=== PATIENT | female | born 1945 | race Caucasian/White ===

== ENCOUNTER 2022-05-13 10:20 | Inpatient (IN) | payer MEDICARE, SELFPAY ==
[2022-05-04 10:33] VITALS: BMI 21.9
[2022-05-13] VITALS (13 sets, daily range): BP systolic 96–137; BP diastolic 51–72; PULSE 19–111; RESP 11–24; TEMP 36.6–37.2; O2SAT 92–99; BMI 21.9
--- NOTE | 2022-05-13 | DI.RAD.S_ITS ---
PROCEDURE: XR LUMBAR SPINE 2-3V INDICATIONS: L3-4 L4-5 TLIF TECHNIQUE: 2 intraoperative fluoroscopic images obtained. COMPARISON: None. FINDINGS: Fluoroscopic images from L3-L4 and L4-L5 fusion. IMPRESSION: Intraprocedural fluoroscopy was provided for guidance and anatomical localization. Please see the procedure report for further details. Dictated by: Zi Muñoz M.D. on 05/14/2022 at 10:46 Approved by: Zi Muñoz M.D. on 05/14/2022 at 10:48
--- NOTE | 2022-05-13 11:23 | PM.PREOP ---
Pre-operative Note COVID-19 COVID-19 status: Negative Result date/Date tested (Pos, Neg/Pending): 05/12/22 Criteria for continued procedure: Expected advancement of disease process, Possibility delay results in more complex future surgery or treatment, Increased loss of function, Continuing or worsening of significant or severe pain, Deterioration of the patient's condition or overall health and Delay expected to result in less-positive ultimate med/surg outcome Interval Note History & Physical reviewed/Exam performed by Physician: Yes Changes to H&P: No
[2022-05-13 11:26] LABS: COVID19 -Nasal RAPID Negative (Negative)
[2022-05-13] MEDS: LACTATED RINGERS 1,000 ML 42 ML IV ×3 (11:39→13:48)
[2022-05-13] MEDS: CLINDAMYCIN 600 MG/50 ML PIGGYBACK 50 MG IV ×2 (11:51→20:29)
--- NOTE | 2022-05-13 12:25 | SUR.OPER ---
Prone on spine table, head in foam head support, padded chest and pelvic supports, gel pad at knees, lower legs supported by pillows; nipples, genitalia and toes free of pressure, arms secured on foam padded arm boards at <90 degrees abduction. Tape over blanket at thigh secured to table.
[2022-05-13] MEDS: BUPIVACAINE LIPOSOME 266 MG/20 ML VIAL INJ (12:32)
[2022-05-13] MEDS: BUPIVACAINE 0.25% (PF) 30 ML, EPINEPHrine 0.3 MG INJ (12:32)
--- NOTE | 2022-05-13 15:04 | P.OP_ITS ---
Operative Date/Time/Diagnoses Date of procedure: 05/13/22 Time of procedure: 12:30 Pre-op diagnosis: 1. L3-4, L4-5 spondylolisthesis 2. L3-4, L4-5 spinal stenosis with radiculopathy Post-op diagnosis: same Procedure & Clinicians Procedure: 1. L3-4, L4-5 Postero-lateral and posterior interbody fusion 2. L3-4, L4-5 interbody cage placement. 3. L3-4, L4-5 decompressive laminectomy with bilateral facetecomies 4. L3-4, L4-5 Posterior segmental instrumentation 5. [place] of bone marrow from iliac crest 6. Utilization of microsurgical technique and operating microscope 7. Utilization of robotic assisted navigation Same procedure as scheduled: Yes Indications: Patient has been having chronic back pain and worsening lumbar radiculopathy. Patient failed multiple conservative management with worsening pain weakness and numbness in her lower extremity. Patient has been having difficulty performing activity of daily living. After discussing risks benefits of treatment options, patient elected proceed with surgery. Surgeon: Carlos Feldman Dredge Pipeman: Leah Jackson Click Yes if Unassisted: No Anesthesia Type: General Operative Notes Closure Type: primary Specimen(s): none sent Prosthetic devices, grafts, tissues, transplants, or devices: Globus CREO MIS screws, Rise cages Applied: catheter Estimated Blood Loss (mL): 100 Blood products transfused: none Procedure in detail: Patient was seen in the preoperative area. Risks and benefits of the surgery was discussed with the patient. Informed consent was obtained from the patient and placed in the chart. Surgical site was marked. Patient was taken to the operative room. General anesthesia was administered. Prophylactic antibiotic was given to the patient less than 30 min before the incision was made. Patient was placed into a prone position on the Scott table. Patient's back was then prepped and draped in the sterile fashion. Time-out was performed at this time. After patient was prepped and draped, patient's PSIS was palpated and marked nerissa aterally. Small 1 cm incision was made over the PSIS for placement of the reference probes. Two trocar was placed into the PSIS 1 on each side. The reference probe was attached to the trocar of the reference apparatus. At this time the C-arm imaging was used to confirm AP and lateral of L3, L4-L5 vertebrae and merged the C-arm imaging using the elmenus robotic navigation system with the CT of the lumbar spine. After successful merging was completed and confirmed, skin marker was used to manjula out the skin incision using the elmenus robotic arm. Bilateral incision was made at this time. Pre templated trajectory was used and guided using the elmenus robotic navigation system for bilateral L3 L4, L5 pedicle screw placement. This was done by using the robotic arm to guide the high-speed bur to make a cortical entry point. Next a drill was placed also using the robotic arm and guided using the navigation system drilling partially through bilateral L3, L4, L5 pedicles. Next L3, L4, L5 pedicle screws it was pre templated and measured was placed onto the power long haul truck driver and inserted into the pedicles bilaterally. After all 6 screws were placed C-arm imaging was taken of both AP and lateral to confirm the placement. Excellent placement of the screws were confirmed and a matched precisely with the pre planned screw placement using the navigation system. MARs retractor was inserted using [employer] guidence. Globus MARS retractors was placed inside the incision and docked onto the L3, L4 lamina. Using microsurgical technique and operating microscope, a L3, L4 laminectomy and L3-4, L4-5 facetectomy was performed using a Kerrison rongeur. Patient was found have severe lateral recess and neural foramen stenosis which was fully decompressed after the laminectomy facetectomy. More than 75% of the facets were removed during the process of decompression rendering L3-4, L4-5 level grossly unstable and required a fusion procedure at the same time. The disc space at L3-4, L4-5 was identified, and a total diskectomy was performed at L3- 4, L4-5 level. The endplates were decorticated using a rasp and shaver. The total diskectomy and decortication was performed at L3-4, L4-5 level in order to to accomplish a L3-4, L4-5 fusion. The local bone from the laminectomy and facetectomy was saved for local bone grafting. After the total diskectomy and decortication was completed, Trifecta bone graft material was combined with local bone that was harvested earlier. At this time, a separate skin is incision was made over the iliac crest. A Jamshidi needle was inserted into the iliac crest through a separate skin incision. 5 cc of bone marrow aspiration was obtained through the separate skin incision using a Jamshidi needle from the iliac crest. The bone marrow aspiration was combined with local bone and the Trifecta bone grafting material. The bone grafting material was placed into the L3-4, L4-5 interbody space along with expandable cages. One cage each was inserted into the L3-4 L4-5 interbody space along with bone graft material. The cage was expanded to its maximum height using the torque limiting screwdriver. The disc preparation as well as the cage insertion were also performed under navigation guidance. After the cage was placed, AP and lateral C-arm imaging was taken to confirm placement of the cage and excellent position was confirmed. Globus MARS retractor was inserted and docked onto the L3-4, L4-5 posterolateral gutter on the right side. Using the power drill, posterior-lateral decortication was performed at L3-4, L4-5 level until bleeding cortical bone was identified. The remaining bone grafting material was placed into the L3-4, L4-5 posterior lateral gutter he order to accomplish posterolateral fusion at the L3- 4, L4-5 level. At this time the tulips were attached to the L3, L4-L5 pedicle screw shanks. After measuring the length of the rods, they were inserted into the tulips of the pedicle screws and locked in place using locking caps and torque limiting screwdriver bilaterally. Total 6 caps and 2 titanium rods was used in order to complete the posterior instrumentation construct. After all the hardware was placed, and confirmed with AP and lateral C-arm imaging, the wound was then irrigated with sterile normal saline and packed with Ray-Dario gauze for 3 min to accomplish hemostasis. After the gauze was removed the deep fascia was closed with #1 Vicryl suture. The subcutaneous layer was closed with 2-0 Vicryl. The skin was closed with skin deisy. Patient tolerated the procedure well. There were no complications. Neuro monitoring system was used to monitor patient's neurologic status throughout entire procedure. There was no disturbance of the neural monitoring signals throughout the case. The Operation could not have been safely performed without compromising the technical result or length of the procedure, without the assistance of a skilled surgical garment assembly supervisor. The surgical garment assembly supervisor was medically necessary for proper positioning, retraction and manipulation of instruments, proper exposure, surgical preparation, and manipulation of tissue. Complications: none Post-operative Condition: stable Disposition: PACU Plan for aftercare: Admit to inpatient hospital
[2022-05-13] MEDS: fentaNYL 100 MCG/2 ML INJ IV ×2 (15:20→15:43)
[2022-05-13] MEDS: hydrOXYzine 50 MG/ML INJ 25 MG IM (15:22)
[2022-05-13] MEDS: OXYCODONE/ACETAMINOPHEN 5/325 TABLET 1 TAB PO (15:50)
[2022-05-13] MEDS: LORazepam 2 MG/ML INJ 0.25 MG IV (15:50)
[2022-05-13] MEDS: HYDROMORPHONE 2 MG INJ IV ×2 (15:54→16:09)
[2022-05-13] MEDS: LACTATED RINGERS 1,000 ML 125 ML IV (17:35)
[2022-05-13] MEDS: OXYCODONE IR 10 MG TABLET PO ×2 (18:06→22:48)
[2022-05-13] MEDS: ACETAMINOPHEN 325 MG TABLET 650 MG PO (18:06)
[2022-05-13] MEDS: HYDROMORPHONE 0.5 MG INJ IV ×2 (19:13→23:36)
[2022-05-13] MEDS: ALBUTEROL 2.5 MG/3 ML NEB (ADULT) INH (20:19)
[2022-05-13] MEDS: SENNOSIDES 8.6 MG TABLET 17.2 MG PO (20:29)
[2022-05-13] MEDS: DOCUSATE 100 MG CAPSULE PO (20:29)
[2022-05-13] MEDS: CYCLOBENZAPRINE 10 MG TABLET PO (22:48)
[2022-05-13] MEDS: TRAZODONE 50 MG TABLET 100 MG PO (22:48)
[2022-05-13] MEDS: hydrOXYzine pamoate 25 MG CAPSULE PO (23:40)
[2022-05-14] VITALS (8 sets, daily range): BP systolic 109–128; BP diastolic 55–69; PULSE 92–105; RESP 14–18; TEMP 36.7–37.1; O2SAT 92–97
[2022-05-14] MEDS: HYDROMORPHONE 0.5 MG INJ IV ×8 (00:41→20:23)
[2022-05-14] MEDS: ACETAMINOPHEN 325 MG TABLET 650 MG PO ×3 (01:55→16:29)
[2022-05-14] MEDS: OXYCODONE IR 10 MG TABLET PO ×6 (01:55→22:48)
[2022-05-14] MEDS: LACTATED RINGERS 1,000 ML 125 ML IV (03:08)
[2022-05-14] MEDS: CLINDAMYCIN 600 MG/50 ML PIGGYBACK 50 MG IV (04:42)
[2022-05-14] MEDS: hydrOXYzine pamoate 25 MG CAPSULE PO ×4 (06:16→22:48)
[2022-05-14] MEDS: CYCLOBENZAPRINE 10 MG TABLET PO ×3 (06:16→22:48)
[2022-05-14] MEDS: LEVOTHYROXINE 75 MCG TABLET PO (06:16)
[2022-05-14 07:04] LABS: Hemoglobin 7.9 g/dL (12.0-16.0)
[2022-05-14] MEDS: estradioL 1 MG TABLET PO (08:19)
[2022-05-14] MEDS: DOCUSATE 100 MG CAPSULE PO ×2 (08:19→20:04)
[2022-05-14] MEDS: AMLODIPINE 5 MG TABLET PO (08:19)
[2022-05-14] MEDS: hydroCHLOROthiazide 25 MG TABLET PO (08:19)
[2022-05-14] MEDS: allopurinoL 100 MG TABLET 200 MG PO (08:19)
[2022-05-14] MEDS: OXYCODONE IR 5 MG TABLET 10 MG PO (08:20)
[2022-05-14] MEDS: ALBUTEROL 2.5 MG/3 ML NEB (ADULT) INH ×2 (09:06→21:35)
--- NOTE | 2022-05-14 10:48 | PT.IIE ---
Current Diagnoses Spondylolisthesis, lumbar region (05/13/22) Spinal stenosis, lumbar region with neurogenic claudication (05/13/22) Surgery Performed Operation Date: 05/13/22 12:15 Actual Procedures p L3-4, L4-5 TLIF w. posterior instrumentation -Robot - Carlos Feldman MD Surgical History (Last Updated 05/04/22 @ 11:27 by Yadira Oscar, RN) History of hysterectomy History of surgery Hx of abdominal surgery Hx of appendectomy Hx of cholecystectomy Hx of dilation and curettage Medical History (Last Updated 05/04/22 @ 11:27 by Yadira Oscar RN) Bilateral cataracts Bowel obstruction COPD (chronic obstructive pulmonary disease) Deviated nasal septum GERD (gastroesophageal reflux disease) Gout History of [place] (hard of hearing) HTN (hypertension) Hypothyroidism Sciatica Spinal stenosis Physical Therapy Inpatient Evaluation/Re-Eval M1 PT/OT-IP Prior Functional Status Start: 05/14/22 10:50 Freq: NEEDED Status: Active Protocol: Document 05/14/22 09:47 DCW (Rec: 05/14/22 11:06 DCW [id number]) Medical Review Prior Functional Status Medical History Reviewed Yes Diet/Fluid Consistency Regular Communication WNL Mobility and Gait Occasionally uses cane, purchased a FWW for post-op Social History Household Members spouse Living Arrangements House Number of Floors (Floors) One Floor Number of Stairs To Enter/Railing? 2 SANDRO, bilateral railing Home Equipment Hospital Bed,Bed Rails M2 PT-IP Current Condition Start: 05/14/22 10:50 Freq: NEEDED Status: Active Protocol: Document 05/14/22 09:47 DCW (Rec: 05/14/22 11:06 DCW [id number]) Physical Therapy Current Condition Current Condition Evaluation Date 05/14/22 Treatment Diagnosis L3-4-5 TLIF, lami Onset Date 05/13/22 M3 PT-IP Subjective Start: 05/14/22 10:50 Freq: NEEDED Status: Active Protocol: Document 05/14/22 09:47 DCW (Rec: 05/14/22 11:06 DCW [id number]) Subjective Physical Therapy Visit Type Type Initial Evaluation Visit Start Time 09:47 Visit Stop Time 10:48 Total Visit Minutes 61 Notes Per RN, pt H&H low, but pt BP stable, pt has no symptoms, appropriate for treatment. Pt in bed with head elevated when PT entered room, agreeable to treatment. Notes pain has been improved so far, but still very sore. Pt worried about home, notes her is unable to assist her at all due to his own medical issues , very worried about how to perform her daily activities without doing and bending, lifting, or twisting. Number of BINDERY HELPER Visits 0 Physical Therapy Visit Comments Patient Comments I know I'm supposed to get up , but it's going to really hurt. Therapy Pain Assessment Pain When Pain Assessed During Mobility Pain Present Pain Present Pain Reported Location Lower Back Intensity 7 Scale Used Numeric (0 - 10) Description Sharp,Stabbing Pain Behaviors Calling Out,Facial Grimacing, Wincing Pain Management Techniques Timing of Activity with Medications M4 PT-IP Mobility and Gait Start: 05/14/22 10:50 Freq: NEEDED Status: Active Protocol: Document 05/14/22 09:47 DCW (Rec: 05/14/22 11:06 DCW [id number]) PT-Bed Mobility Assessment Rolling Type of Rolling Log Rolling,Roll to Right Level of Assist Minimal Assistance,1 Person Assistance Supine to Sit Supine to Sit Moderate Assistance,1 Person Assistance,Bedrails Sit to Supine Sit to Supine Moderate Assistance,1 Person Assistance,Bedrails Scooting Scooting to Edge of Bed Minimal Assistance Scooting Up and Down in Bed Minimal Assistance PT-Transfer Assessment Sit to and From Stand Sit to and from Stand Contact Guard Assistance Equipment Transfer Assistive Device Bed Rail,Gait Belt,Front Wheeled Walker Orthotic/Prosthetic Devices or Brace: No Comments Mobility Comments Pt requires verbile and tactile cues, as well as Mod Ax1 with bed mobility, both to ensure she follows spinal precautions and to assist getting hips to roll. Gait Assessment Gait Gait Assistance Required: Contact Guard Assist Distance (Feet) 50 Able to Maintain Weight Bearing Status Yes During Gait Assistive Devices Assistive Device Gait Belt,Front Wheeled Walker Gait Deviations General Gait Pattern Antalgic,Flexed Trunk Factors Limiting Gait Function Factors Limiting Gait Function Decreased Activity Tolerance, Decreased Strength,Pain Comments Gait Comments Pt able to ambulate 50' in hallway, clearly fatigued by end of walk, used FWW, SBA. PT-Balance Assessment Sitting Balance and Reactions Static Sitting Balance Ability Normal Dynamic Sitting Balance Ability Normal Standing Balance and Reactions Static Standing Balance Ability Good Dynamic Standing Balance Ability Fair Device Used FWW M5 PT-IP Objective Assessments Start: 05/14/22 10:50 Freq: NEEDED Status: Active Protocol: Document 05/14/22 09:47 DCW (Rec: 05/14/22 11:06 DCW [id number]) Orientation Orientation/Cognition Orientation Name,Age,Birthday,Month,Date, Year,Day of Week,Place, Situation Language Function Ability No Deficits Noted Safety Awareness Understands Safety Issues Memory Description No Deficits Noted Strength Comments Strength Comments LE motion limited secondary to pain, but able to lift limbs against gravity and perform functional mobility M7 PT-IP Assessment and Plan Start: 05/14/22 10:50 Freq: NEEDED Status: Active Protocol: Document 05/14/22 09:47 DCW (Rec: 05/14/22 11:06 DCW [id number]) PT Summary Assessment and Plan Potential Rehabilitation Potential Good Status of Condition at Evaluation Evolving Summary Impairments Pain,ROM,Strength,Balance,Bed Mobility,Transfers,Gait, Activity Tolerance Assessment Summary Pt is POD #1 following T3-5 TLIF, Lami. Pt struggling significantly with pain control, but after getting up into standing was feeling much better. Pt required Mod Ax1 with bed mobility and maintaining spinal precautions . Very limited with activity tolerance. Pt does not have good support at home, is unlikely to be safe at this time discharging home, will likely need stay at SNF for rehab prior to return home to decrease burden of care and improve independence. Pt left in bed with call navarro in place , new warm blanket, and tray with water. Incision dressing noted to be clean, dry, and intact. Pt did have a rather large area of blood stained on her sequential compression cuff on her left leg, but no wound could be seen. RN informed. Goals Bed Mobility Goal Contact Guard Assistance Transfer Goal Contact Guard Assistance Gait Goal Standby Assistance Gait Distance 100' Other Goals Ascend/descend 3 steps CGA /c bilateral railing Frequency of Treatment Frequency Of Treatment Twice a Day Treatment Plan Physical Therapy Treatment Plan Bed Mobility Training,Transfer Training,Gait Training, Therapeutic Exercise,Discharge Planning Precautions Lumbar Precautions Log Roll,No Twisting,Limit Bending,Lifting Restriction of 10 lbs,Gait Belt above Incisional Area Weight Bearing Status Weight Bearing Status Weight Bear as Tolerated Recommendations To Nursing Amount of Assist Needed 1 Person Assist Discharge Recommendations PT Discharge Recommendations SNF Rehab
[2022-05-14] MEDS: MAGNESIUM HYDROXIDE 30 ML UDC PO (10:49)
[2022-05-14] MEDS: polyethylene glycoL 3350 17 GM POWD.PACK PO (10:49)
--- NOTE | 2022-05-14 11:42 | PM.PNPO.1 ---
Subjective Subjective Date Patient Seen: 05/14/22 Time Patient Seen: 11:42 Interval history: Patient awake and comfortably lying in bed this morning. She states the pain is not bad when she is not moving and is well controlled with medication. She notes that she has been up with physical therapy and was able to walk down [place]oto with assistance. She has 3 steps to enter her home and plans to work on managing stairs next with physical therapy. She lives alone but she has adequate assistance nearby. Exam Vital Signs (past 8 hours): - 05/14/22 05:11 05/14/22 07:52 05/14/22 07:52 Temperature 98.1 F Pulse Rate 92 H Respiratory Rate 18 Blood Pressure 118/63 Pulse Oximetry 95 95 Oxygen Delivery Method Nasal Cannula Nasal Cannula Oxygen Flow Rate 2 2 05/14/22 09:06 05/14/22 09:18 05/14/22 08:50 Temperature 98.4 F Pulse Rate 101 H 105 H Respiratory Rate 14 18 Blood Pressure 109/55 L Pulse Oximetry 95 92 92 Oxygen Delivery Method Nasal Cannula Room Air Oxygen Flow Rate 2 0 Fraction of Inspired Oxygen 28 SaO2/FiO2 Ratio 350 Oxygen Delivery Method Room Air Oxygen Flow Rate 2 Narrative Exam Narrative: Pleasant 76-year-old female. Awake, alert, and oriented. Intraoperative dressing clean, dry, and intact. Strength and sensation intact to bilateral lower extremities. Bilateral calves soft, compressible, nontender with no palpable cords or masses. SCDs on. Urinary catheter intact. Objective Labs 05/14/22 06:40 Labs: Laboratory Results - last 24 hr 05/14/22 06:40 Hgb 7.9 L Hct 23.0 L PFSH Medical History Bilateral cataracts Bowel obstruction COPD (chronic obstructive pulmonary disease) Deviated nasal septum GERD (gastroesophageal reflux disease) Gout History of [place] (hard of hearing) HTN (hypertension) Hypothyroidism Sciatica Spinal stenosis Surgical History History of hysterectomy History of surgery Hx of abdominal surgery Hx of appendectomy Hx of cholecystectomy Hx of dilation and curettage Social History household members: spouse Smoking Status: Current every day smoker alcohol intake: current Assessment & Plan Post-op Postoperative Procedures: Procedures Operation Date: 05/13/22 12:15 Actual Procedure Side Surgeon p L3-4, L4-5 TLIF w. posterior instrumentation -Robot Carlos Feldman MD Postoperative day: 1 Postoperative status: doing well Postoperative status narrative: Patient is progressing as expected after L3-L5 TLIF. Postoperative plan: routine post-op care Postoperative plan narrative: Plan to continue with physical therapy today and assess patient's ability to manage stairs. Continue multimodal pain regimen. Discharge urinary catheter when able to be up to commode. Patient is considering returning to home versus penitentiary facility and is open to either option depending on which is more appropriate.
--- NOTE | 2022-05-14 11:52 | OT.IP.EVAL ---
Current Diagnoses Spondylolisthesis, lumbar region (05/13/22) Spinal stenosis, lumbar region with neurogenic claudication (05/13/22) Surgery Performed Operation Date: 05/13/22 12:15 Actual Procedures p L3-4, L4-5 TLIF w. posterior instrumentation -Robot - Carlos Feldman MD Past Medical History (Last Reviewed 05/14/22 @ 12:02 by Cynthia Castro PA-C) Bilateral cataracts Bowel obstruction COPD (chronic obstructive pulmonary disease) Deviated nasal septum GERD (gastroesophageal reflux disease) Gout History of [place] (hard of hearing) HTN (hypertension) Hypothyroidism Sciatica Spinal stenosis Surgical History (Last Reviewed 05/14/22 @ 12:02 by Cynthia Castro PA-C) History of hysterectomy History of surgery Hx of abdominal surgery Hx of appendectomy Hx of cholecystectomy Hx of dilation and curettage Occupational Therapy Inpatient Evaluation/Re-Eval M1 PT/OT-IP Prior Functional Status Start: 05/14/22 10:50 Freq: NEEDED Status: Active Protocol: Document 05/14/22 09:47 DCW (Rec: 05/14/22 11:06 DCW [id number]) Medical Review Prior Functional Status Medical History Reviewed Yes Diet/Fluid Consistency Regular Communication WNL Mobility and Gait Occasionally uses cane, purchased a FWW for post-op Social History Household Members spouse Living Arrangements House Number of Floors (Floors) One Floor Number of Stairs To Enter/Railing? 2 SANDRO, bilateral railing Home Equipment Hospital Bed,Bed Rails M1 PT/OT-IP Prior Functional Status Start: 05/14/22 13:27 Freq: NEEDED Status: Active Protocol: Document 05/14/22 11:20 CCC (Rec: 05/14/22 13:43 [facility] [id number]) Medical Review Prior Functional Status Medical History Reviewed Yes Diet/Fluid Consistency Regular Communication WNL Mobility and Gait Occasionally uses cane, purchased a FWW for post-op Activities of Daily Living and IADL's Pt states had pain with all her needs. Prior Functional Level (Other details) Pt states her is not able to assist and has medical issues. Social History Household Members spouse Living Arrangements House Number of Floors (Floors) One Floor Number of Stairs To Enter/Railing? 2 SANDRO, bilateral railing Home Environment Walk in Shower Home Equipment Front Wheel Walker,Four Wheel Walker,Glass Calibrator,Bed Rails Additional Social History Comment Pt has adjustable bed M2 OT-IP Current Condition Start: 05/14/22 13:27 Freq: Status: Active Protocol: Document 05/14/22 11:20 [facility] (Rec: 05/14/22 13:43 [facility] [id number]) Occupational Therapy Current Condition Current Condition Evaluation Date 05/14/22 Treatment Diagnosis S/p L3-4, L4-5 TLIF Diagnosis Onset Date 05/13/22 Post Operative Precautions Lumbar Precautions Log Roll,No Twisting,Limit Bending,Lifting Restriction of 10 lbs,Gait Belt above Incisional Area M3 OT- IP Subjective and Pain Start: 05/14/22 13:27 Freq: Status: Active Protocol: Document 05/14/22 11:20 [facility] (Rec: 05/14/22 13:43 [facility] [id number]) OT- Subjective Occupational Therapy Visit Type Type Initial Evaluation Visit Start Time 11:20 Visit Stop Time 11:52 Total Visit Minutes 30 Occupational Therapy Visit Comments Patient Comments Pt in pain and agreed to get up but just completed PT a little earlier. Patient/Caregiver Goals TO go home. OT Pain Assessment Pain When Pain Assessed At Rest Pain Present Pain Present Pain Reported Location Lower Back Intensity 7 Scale Used Numeric (0 - 10) M4 OT- IP ADL's Start: 05/14/22 13:27 Freq: Status: Active Protocol: Document 05/14/22 11:20 [facility] (Rec: 05/14/22 13:43 [facility] [id number]) OT [id number] Comments OT Self-Feeding Comments Set-up assist. OT ADL-Grooming Comments OT Grooming Comments Pt just wanted to wash her face with wash cloth. OT ADL-Oral Care Comments Oral Care Comments Pt refused. OT ADL-Dressing General Eval Lower Body Dressing Ability Maximum Assistance Comments OT Dressing Comments Educated pt on LB dressing equipment needs. OT ADL-Toileting Comments OT Toileting Comments Bond in place OT ADL-Bathing Comments OT Bathing Comments NOt performed as pt too tired and in pain. M5 OT- IP IADL's Start: 05/14/22 13:27 Freq: Status: Active Protocol: Document 05/14/22 11:20 [facility] (Rec: 05/14/22 13:43 [facility] [id number]) OT-Instrumental Activities of Daily Living Deficits IADL Deficits Identified Deficits Home Safety Awareness Ability to Problem Solve Emergency Able to Problem Solve Situations Home Safety Comments Pt little groggy and also somewhat hard of hearing and if going home will benefit from assist with ADl and mobility needs. M6 OT- IP Functional Cognition Start: 05/14/22 13:27 Freq: Status: Active Protocol: Document 05/14/22 11:20 [facility] (Rec: 05/14/22 13:43 [facility] [id number]) Cognitive Factors Limiting Selfcare Function Cognitive Ability Level of Alertness Alert Patient Orientation Name,Place,Situation Attention Span Ability Capable of Focused Attention, Capable of Sustained Attention Ability to Follow Commands Able to Follow One Step Commands with Increased Time, Able to Follow One Step Commands with Repetition Safety Awareness Decreased Recall of Precautions,Decreased Ability to Apply Precautions Cognitive Comments Cognitive Assessment Comments Pt a bit [place] and needing concrete cues to follow. Pt wanting to go home but realizing her will not be able to assist her at all due to his medical issues. Pt reluctant but appears open to go to skilled rehab is necessary. OT- Vision and Hearing OT- Hearing Assessment OT- Hearing Assessment Hearing Impaired M7 OT- IP Mobility and Balance Start: 05/14/22 13:27 Freq: Status: Active Protocol: Document 05/14/22 11:20 [facility] (Rec: 05/14/22 13:43 [facility] [id number]) OT- Bed Mobility Assessment Supine to Sit Supine to Sit Assist Moderate Assistance Sit to Supine Sit to Supine Assist Maximum Assistance OT-Transfer Assessment Comments Mobility Comments O2 on 1L at 96% and after bed mobility on RA dropped to 90% and 1L replaced and increased to 95%. MODA to help pt get uprigth and MAXA X1 to help get back into bed. pt having lots of pain and not wanting to do anymore at this time. OT- Balance Assessment Sitting Balance and Reactions Static Sitting Balance Ability Fair M9 OT- IP Assessment and Plan Start: 05/14/22 13:27 Freq: Status: Active Protocol: Document 05/14/22 11:20 [facility] (Rec: 05/14/22 13:43 [facility] [id number]) OT Summary Assessment and Plan Potential Rehabilitation Potential Good Analytic Complexity at Evaluation Low Summary OT Impairments Pain,Balance,Functional Cognition,Functional Mobility, Grooming,Dressing,Toileting, Bathing,Toilet Transfers, Shower Transfers,Activity Tolerance Progress Towards Goals Slow Progress due to Pain,Slow Progress due to Medical Issues,Slow Progress due to Activity Tolerance,Slow Progress due to Cognition Assessment Summary Pt low complexity and main barriers are step, now on O2, pain, and needing extensive assist for mobility needs. Able to talk to pt regarding OT equipment needs. Pt realizes her will not be able to assist her and at this time best for pt to go to skilled rehab prior to going home. Goals Grooming Goal Independent Dressing Goal Standby Assistance Toileting Goal Independent Bathing Goal Standby Assistance Toilet Transfer Goal Independent Shower Transfer Goal Contact Guard Assistance Days to Meet Goals 20 Frequency of Treatment Frequency Of Treatment Once a Day Treatment Plan OT Treatment Plan ADL Training,Functional Mobility,Patient/Family Education,Discharge Planning Other Treatment Recommendations and Next LB dressing equipment practice Treatment Focus Discharge Recommendations OT Discharge Recommendations SNF Rehab Transportation Needs at Discharge Wheelchair/Cabulance
--- NOTE | 2022-05-14 12:58 | PT-IP ANOTE ---
Pt refused PT session at this time due to pain. Will attempt to see later in afternoon or tomorrow morning.
--- NOTE | 2022-05-14 13:08 | CM.DANOTE ---
DCP: Case received, EMR reviewed and met with patient. Introduced self and role. Was able to obtain information regarding patient's baseline activity status at home prior to her surgery. DCP assessment completed with information currently available. Patient is a 76 year old female who admitted yesterday morning to the care of the hospitalist team. PCP: Travis Mario, [facility]. Payer: Medicare/[employer]. Patient came to the hospital for a surgical procedure. Patient had L3-4, L4-5 postero-lateral and posterior interbody fusion. Patient has history of spinal stenosis. Met with patient in her room. She is alert and oriented. Confirmed that she resides in [place] with spouse, Cedrick. She indicated, her uses a cane. Discussed discharge planning, patient is hopeful to go home, rather than rehab facility, but did discuss. At her baseline, she has a cane for home use, and a bed that can adjust like a hospital. Asked patient going over Medicare list to consider skilled if necessary, and which facility that she would want to go to. Her preference is in the [facility] area, and if she had to choose, would be [facility] first, or [facility]. She stated that her spouse was at [facility], her main concern was that they wanted to keep him too long, she felt that he was ready sooner. Patient is open to home health, this is her first priority rather than skilled. Have not yet gone over home health agencies. P: DCP to continue to follow. Patient will continue to work with P.T. Left a message with Lotus at [facility], referral was sent, and spoke to Roxie at [facility]. She indicated, she is not sure that she will have an admission nurse on Tuesday, but will review. Cadence Vargas, RN/Press Puller Discharge Planning/Care Management Advanced directive, confirm from FAMILY Start: 05/13/22 18:04 Freq: Q24H Status: Active Protocol: Document 05/13/22 18:04 BT (Rec: 05/13/22 18:04 BT [id number]) Advance Directive, confirm on record Time 18:04 Person contacted Pt Copy received No CM Discharge Assessment Start: 05/14/22 13:04 Freq: Status: Active Protocol: Document 05/14/22 13:04 VM (Rec: 05/14/22 13:08 [id number]) Discharge Planning Assessment Assigned Vegetable Ii Farmworker Cadecne Vargas RN/Press Puller Advance Directives? Yes Advance Directives on File No History Provided By Patient,Medical Record Prior Living Arrangements House Household Members spouse Type of transporation used prior to Drives own vehicle admit Independent with ADL's Yes Is patient alert and oriented? Yes DME Already Rented / Owned Cane Patient/Family Preference Residential Facility,Home with Home Health Comment Patient prefers home with home health, but sent referrals to retirement as back up plan. Barriers to Discharge Yes Comment Spouse at home uses cane, unclear as to how much assistance he can offer. Discharge Plan Home Transportation Arrangement Spouse Referrals Initiated Other Additional Comment Sent referrals to [facility] and [facility], per patient's request. If patient plan is SNF: Has PASSR been No: Have not yet completed, completed? unsure if she will need skilled Medicare Choice List Provided Yes Whiteboard Updated in Patient Room with Yes name and ext. # of Vegetable Ii Farmworker Review Status In Process Next Review Type Continued Stay Review Pre-Anesthesia Assessment Start: 05/04/22 10:33 Freq: Status: Active Protocol: Document 05/04/22 10:33 CAB (Rec: 05/04/22 11:41 [facility] [id number]) Pre-Anesthesia Assessment Preferred Name Alanis Patient Information Reviewed Via Phone Assessment Assessment Completed With Patient Diagnostic Results BMP/CMP,CBC,EKG Comment Outside labs/EKG scanned Primary Care Provider Rohit Mario Seen Specialist in Last 12 Months Yes Specialist Seen Orthopedist Primary Language Cymraes Fleet Administrative Assistant Required No Height 5 ft Weight 112 lb Body Mass Index (BMI) 21.9 Hearing Ability Hearing Impaired Visual Assist Glasses Dentition Type Partial- Lower,Full- Upper Barriers to Learning None Hx Anesthesia Reactions No Hx Family Anesthesia Reaction No Hx Malignant Hyperthermia No Hx Blood Transfusions No: Pt unsure Anesthesia Review Requested No School Bus Driver No alcohol intake current alcohol intake frequency 0-2 drinks per day Smoking Status Former smoker Tobacco type e-cigarettes how long ago did patient quit smoking Quit smoking 5 years ago, currently vapes Substance Use Type marijuana Comment Advised not to vape marijuana 24 horus prior to surgery Musculoskeletal Symptoms Abnormal Gait,Back Pain, Difficulty Walking,Muscle Weakness,Radiating Pain into Limb History of Falling (Recent or History of Yes ) Patient is completely paralyzed or No completely immobile Mental Status Oriented to own ability Is patient on oxygen? No Does patient have BATISTA/SOB Yes Hx Sleep Apnea No Comment COPD Currently Taking a Beta Oziel No Hx Chest Pain No Hx SOB Yes: COPD Hx Syncope or Dizziness Yes: Dizziness Anti-Coagulant Therapy No Has a Business Process Specialist No Cardiac Testing No Hx Pacemaker/ICD No Pacemaker Rep Required? No Cardiac Clearance Received Not Applicable Diet Type At Home Regular Dysphagia No Gastrointestinal Symptoms Constipation,Diarrhea,Reflux Bladder Pattern Incontinent,Nocturia Urinary Catheter Present No Hx Urinary Self Catheterization No Diabetes No Patient No Lactating No Hx Drug Resistant Organism No Presence of External or Internal Medical No Devices Have you had any close contact with No someone diagnosed with COVID-19? Received a COVID vaccine? Yes Received all doses? Yes Marital Status Lives With spouse Current Living Arrangements House Number of Floors (Floors) One Floor Support System Child/Children,Spouse Does the Patient Have Assistance After No: Goddaughter will stay w/pt Surgery to assist with care @ DC, is limited Patient Discharge Plan Description Return Home Comment Pt advised 2 day length of stay per surgeon Feels Safe in Current Environment Yes Been Physically Hurt or Threatened By a No Person in Current Environment Do you have thoughts of harming yourself None or others? Are you currently considering suicide? No Do you have a plan to hurt yourself or No Plan others? Do You Have Any Spiritual Beliefs That No May Affect Your HC Choices? Do You Have Any Cultural Practices That No May Affect Your HC Choices? Comment Spiritual Who Can We Speak to About Patient's Care Family, friends Identifying Code for Release of Patient Declines to issue Information Health Care Proxy/Next of Kin Cedrick () Health Care Proxy Emergency Contact Name Rita (sister) Neel (brother) Emergency Contact Neel: Advance Directives? Yes: Living Will Advance Directives on File No Power of Any Commodity Buyer No PAC Instructions Durable medical equipment, Medications to take/avoid, Nasal antibiotic,No ETOH/ petroleum product on skin DOS, NPO,Pre-surgical wash,Sensory aids,Sturdy shoes/comfortable clothes,Do not bring valuables and remove jewelry
[2022-05-14] MEDS: OXYCODONE ER 10 MG TAB 20 MG PO ×2 (14:43→20:03)
[2022-05-14] MEDS: SENNOSIDES 8.6 MG TABLET 17.2 MG PO (20:04)
[2022-05-14] MEDS: TRAZODONE 50 MG TABLET 100 MG PO (22:48)
[2022-05-15] VITALS (7 sets, daily range): BP systolic 110–139; BP diastolic 55–68; PULSE 98–117; RESP 16–19; TEMP 35.9–37; O2SAT 93–98
[2022-05-15] MEDS: HYDROMORPHONE 0.5 MG INJ IV ×4 (01:20→06:25)
[2022-05-15] MEDS: OXYCODONE IR 10 MG TABLET PO ×3 (02:12→21:28)
[2022-05-15] MEDS: ACETAMINOPHEN 325 MG TABLET 650 MG PO ×2 (02:12→21:28)
[2022-05-15] MEDS: LEVOTHYROXINE 75 MCG TABLET PO (05:55)
[2022-05-15] MEDS: hydrOXYzine pamoate 25 MG CAPSULE PO (05:55)
[2022-05-15 06:59] LABS: Hematocrit 22.3 % (36-46); Hemoglobin 7.7 g/dL (12.0-16.0)
[2022-05-15] MEDS: allopurinoL 100 MG TABLET 200 MG PO (09:02)
[2022-05-15] MEDS: lisinopriL 20 MG TABLET 40 MG PO (09:02)
[2022-05-15] MEDS: AMLODIPINE 5 MG TABLET PO (09:02)
[2022-05-15] MEDS: estradioL 1 MG TABLET PO (09:02)
[2022-05-15] MEDS: DOCUSATE 100 MG CAPSULE PO ×2 (09:02→21:28)
[2022-05-15] MEDS: hydroCHLOROthiazide 25 MG TABLET PO (09:02)
[2022-05-15] MEDS: OXYCODONE ER 10 MG TAB 20 MG PO ×2 (09:03→21:28)
[2022-05-15] MEDS: ALBUTEROL 2.5 MG/3 ML NEB (ADULT) INH ×2 (09:05→20:27)
--- NOTE | 2022-05-15 10:20 | PT.IPTN ---
Current Diagnoses Spondylolisthesis, lumbar region (05/13/22) Spinal stenosis, lumbar region with neurogenic claudication (05/13/22) Surgery Performed Operation Date: 05/13/22 12:15 Actual Procedures p L3-4, L4-5 TLIF w. posterior instrumentation -Robot - Carlos Feldman MD Physical Therapy Treatment Note M2 PT-IP Current Condition Start: 05/14/22 10:50 Freq: NEEDED Status: Active Protocol: Document 05/14/22 09:47 DCW (Rec: 05/14/22 11:06 DCW [id number]) Physical Therapy Current Condition Current Condition Evaluation Date 05/14/22 Treatment Diagnosis L3-4-5 TLIF, lami Onset Date 05/13/22 M3 PT-IP Subjective Start: 05/14/22 10:50 Freq: NEEDED Status: Active Protocol: Document 05/15/22 11:00 TS (Rec: 05/15/22 11:13 TS [id number]) Subjective Physical Therapy Visit Type Type Treatment Note Visit Start Time 10:20 Visit Stop Time 10:58 Total Visit Minutes 38 Physical Therapy Visit Comments Patient Comments Pt reports pain in low back and into hip/legs, agreeable to PT session. Therapy Pain Assessment Pain When Pain Assessed During Mobility Pain Present Pain Present Allowed to Sleep Location Lower Back Intensity 8 Scale Used Numeric (0 - 10) Description Acute,Burning,Sharp,Shooting Pain Management Techniques Timing of Activity with Medications M4 PT-IP Mobility and Gait Start: 05/14/22 10:50 Freq: NEEDED Status: Active Protocol: Document 05/15/22 11:00 TS (Rec: 05/15/22 11:13 TS [id number]) PT-Bed Mobility Assessment Rolling Type of Rolling Log Rolling,Roll to Right Level of Assist Minimal Assistance,1 Person Assistance Supine to Sit Supine to Sit Maximum Assistance,1 Person Assistance,Bedrails Scooting Scooting to Edge of Bed Minimal Assistance PT-Transfer Assessment Sit to and From Stand Sit to and from Stand Contact Guard Assistance Equipment Transfer Assistive Device Front Wheeled Walker Orthotic/Prosthetic Devices or Brace: No Comments Mobility Comments Logroll Trent for rolling to Right side, supine to sit MaxA for uprighting trunk and LE assist of bed. Pt scooted Trent to EOB, sat with good midline balance initally with BUE support progressed to no UE support. Sit to stand CGA with cues for MANUEL on bed. Pt ambulated in hallway ~100', pt reporting dizziness and increasing pain in LEs and R hip. Pt ambulated bakc to room in bedside chair, continues to report pain and some dizziness. Pt was left in bedside chair with call light nearby, o2 on 2L, all needs met, nursing notified. Gait Assessment Gait Gait Assistance Required: Standby Assistance,Contact Guard Assist Distance (Feet) 100 Able to Maintain Weight Bearing Status Yes During Gait Assistive Devices Assistive Device Gait Belt,Front Wheeled Walker Orthotic/Prosthetic Devices or Brace: No Gait Deviations General Gait Pattern Antalgic,Flexed Trunk Factors Limiting Gait Function Factors Limiting Gait Function Decreased Activity Tolerance, Decreased Strength,Pain Comments Gait Comments Pt ambulated in hallway CGA/ SBA ~100' with step thru gait, c/o of some dizziness and increasing pain into LEs and R hip. PT-Balance Assessment Sitting Balance and Reactions Static Sitting Balance Ability Fair Dynamic Sitting Balance Ability Good Standing Balance and Reactions Static Standing Balance Ability Good Dynamic Standing Balance Ability Fair Device Used FWW M5 PT-IP Objective Assessments Start: 05/14/22 10:50 Freq: NEEDED Status: Active Protocol: Document 05/14/22 09:47 [facility]W (Rec: 05/14/22 11:06 [facility] [id number]) Orientation Orientation/Cognition Orientation Name,Age,Birthday,Month,Date, Year,Day of Week,Place, Situation Language Function Ability No Deficits Noted Safety Awareness Understands Safety Issues Memory Description No Deficits Noted Strength Comments Strength Comments LE motion limited secondary to pain, but able to lift limbs against gravity and perform functional mobility M7 PT-IP Assessment and Plan Start: 05/14/22 10:50 Freq: NEEDED Status: Active Protocol: Document 05/15/22 11:00 TS (Rec: 05/15/22 11:13 TS [id number]) PT Summary Assessment and Plan Potential Rehabilitation Potential Good Status of Condition at Evaluation Evolving Summary Impairments Pain,ROM,Strength,Balance,Bed Mobility,Transfers,Gait, Activity Tolerance Assessment Summary Pt found in room with PA discussing care, pt agreeable to PT session. She required Trent for logroll and MaxA for supine to sit. She performed sit to stand CGA from bed and ambulated in hallways ~100' CGA/SBA with step thru gait, c /o increasing pain in LEs and R hip, no buckling or LOB but reuqired some standing rest breaks. Pt recalled 3/3 spinal precautions. PT recommends SNF at this time to improve strenght, activitity tolerance , transfers and gait. Pt is unsafe at this time to return home. Goals Bed Mobility Goal Contact Guard Assistance Transfer Goal Contact Guard Assistance Gait Goal Standby Assistance Gait Distance 100' Other Goals Ascend/descend 3 steps CGA /c bilateral railing Frequency of Treatment Frequency Of Treatment Twice a Day Treatment Plan Physical Therapy Treatment Plan Bed Mobility Training,Transfer Training,Gait Training, Therapeutic Exercise,Discharge Planning Precautions Lumbar Precautions Log Roll,No Twisting,Limit Bending,Lifting Restriction of 10 lbs,Gait Belt above Incisional Area Weight Bearing Status Weight Bearing Status Weight Bear as Tolerated Recommendations To Nursing Amount of Assist Needed 1 Person Assist Discharge Recommendations PT Discharge Recommendations SNF Rehab
--- NOTE | 2022-05-15 11:32 | PM.PNPO.1 ---
Subjective Subjective Date Patient Seen: 05/15/22 Time Patient Seen: 11:33 Interval history: Patient is complaining of moderate to severe low back pain. She is also concerned about her constipation. We apparently did not resume her bowel program, she is very concerned because she has a history of 7 abdominal surgeries. She is a chronic pain management patient and typically takes oxycodone 5 mg q.i.d.. She does not feel the long-acting Oxy ER 20 mg b.i.d. plus short-acting oxy 10 is sufficient. We will add tramadol for breakthrough pain. Exam Vital Signs (past 8 hours): - 05/15/22 09:05 05/15/22 09:18 05/15/22 08:00 Temperature 96.7 F L Pulse Rate 103 H 98 H Respiratory Rate 16 16 Blood Pressure 132/68 Pulse Oximetry 97 93 98 Oxygen Delivery Method Nasal Cannula Nasal Cannula Oxygen Flow Rate 1 0 Fraction of Inspired Oxygen 28 SaO2/FiO2 Ratio 350 Oxygen Delivery Method Nasal Cannula Oxygen Flow Rate 1 Narrative Exam Narrative: Pleasant 76-year-old female, resting in bed, mild distress due to pain and abdominal distention. Abdomen is distended and [id number] tender to palpation. Lumbar dressing demonstrates some scant drainage the right lateral incision. No surrounding erythema, induration, or swapna pus. Bilateral lower extremity: Motor functions are grossly intact, sensation is grossly intact to light touch, calves are soft and nontender palpation. Objective Labs 05/15/22 05:42 Labs: Laboratory Results - last 24 hr 05/15/22 05:42 Hgb 7.7 L Hct 22.3 L PFSH Medical History Bilateral cataracts Bowel obstruction COPD (chronic obstructive pulmonary disease) Deviated nasal septum GERD (gastroesophageal reflux disease) Gout History of [place] (hard of hearing) HTN (hypertension) Hypothyroidism Sciatica Spinal stenosis Surgical History History of hysterectomy History of surgery Hx of abdominal surgery Hx of appendectomy Hx of cholecystectomy Hx of dilation and curettage Social History household members: spouse Smoking Status: Current every day smoker alcohol intake: current Assessment & Plan Post-op Postoperative Procedures: Procedures Operation Date: 05/13/22 12:15 Actual Procedure Side Surgeon p L3-4, L4-5 TLIF w. posterior instrumentation -Robot Carlos Feldman MD Postoperative day: 2 Postoperative status: marginal pain control Postoperative status narrative: -stable status post L3-4, L4-5 TLIF -postoperative hemorrhagic anemia, hemoglobin currently is 7.7 -chronic pain management patient -constipation with history of abdominal surgery x7 Postoperative plan narrative: -mobilize with PT/OT or nursing staff. Weightbearing as tolerated with front wheel walker. No bending, lifting, twisting x6 weeks -continue multimodal pain management. Add tramadol for breakthrough pain -resume normal bowel program. Encouraged patient to get out of bed and walk. An aggressive bowel program is not sufficient, we may need to consult the hospitalist for further recommendations/advanced imaging. -remove urinary catheter once ambulating sufficiently. Hopefully today -DC to SNF, hopefully tomorrow
[2022-05-15] MEDS: TRAMADOL 50 MG TABLET PO (11:47)
[2022-05-15] MEDS: DICYCLOMINE 10 MG CAPSULE 40 MG PO (11:48)
--- NOTE | 2022-05-15 14:26 | CM.DPNOTE ---
Discharge Planning Note: [facility] can accept patient tomorrow, 05/16/22 and can provide transportation (J[employer]) at 11:00 am, will let Dr Madsen know. Plan: Possible dc to [facility] tomorrow if medically cleared, will need to leave at 11:00 am. Rhiannon Vernon RN/DCP
--- NOTE | 2022-05-15 16:30 | PT.IPTN ---
Current Diagnoses Spondylolisthesis, lumbar region (05/13/22) Spinal stenosis, lumbar region with neurogenic claudication (05/13/22) Surgery Performed Operation Date: 05/13/22 12:15 Actual Procedures p L3-4, L4-5 TLIF w. posterior instrumentation -Robot - Carlos Feldman MD Physical Therapy Treatment Note M2 PT-IP Current Condition Start: 05/14/22 10:50 Freq: NEEDED Status: Active Protocol: Document 05/14/22 09:47 DCW (Rec: 05/14/22 11:06 DCW [id number]) Physical Therapy Current Condition Current Condition Evaluation Date 05/14/22 Treatment Diagnosis L3-4-5 TLIF, lami Onset Date 05/13/22 M3 PT-IP Subjective Start: 05/14/22 10:50 Freq: NEEDED Status: Active Protocol: Document 05/15/22 16:54 TS (Rec: 05/15/22 17:05 TS [id number]) Subjective Physical Therapy Visit Type Type Treatment Note Visit Start Time 16:30 Visit Stop Time 16:50 Total Visit Minutes 20 Notes Pt remains on 2L of o2. Physical Therapy Visit Comments Patient Comments Pt agreeable to PT session. M4 PT-IP Mobility and Gait Start: 05/14/22 10:50 Freq: NEEDED Status: Active Protocol: Document 05/15/22 16:54 TS (Rec: 05/15/22 17:05 TS [id number]) PT-Bed Mobility Assessment Rolling Type of Rolling Log Rolling,Roll to Right Level of Assist Minimal Assistance,1 Person Assistance Supine to Sit Supine to Sit Maximum Assistance,1 Person Assistance,Bedrails Sit to Supine Sit to Supine Moderate Assistance,1 Person Assistance,Bedrails Scooting Scooting to Edge of Bed Moderate Assistance PT-Transfer Assessment Comments Mobility Comments Logroll to right Trent for trunk, supine to sit MaxA x1 for uprighting trunk and LEs off EOB. Pt scooted ModA with BUE support on bed/handrail assist and step stool under feet. Pt sat EOB ~5 mins, reported being fatigued and having increasing pain, requested back to bed. Sit to supine ModA for LEs back to bed. Pt required Trent x2 scooting to HOB. PT was left in bed with call light nearby, all needs met. Gait Assessment Comments Gait Comments Pt could not perform this session. PT-Balance Assessment Sitting Balance and Reactions Static Sitting Balance Ability Good Dynamic Sitting Balance Ability Fair Comments Other Balance Tests/Deviations/Treatment Pt could not come into : standing this session due to fatigue and pain. M5 PT-IP Objective Assessments Start: 05/14/22 10:50 Freq: NEEDED Status: Active Protocol: Document 05/14/22 09:47 DCW (Rec: 05/14/22 11:06 DCW [id number]) Orientation Orientation/Cognition Orientation Name,Age,Birthday,Month,Date, Year,Day of Week,Place, Situation Language Function Ability No Deficits Noted Safety Awareness Understands Safety Issues Memory Description No Deficits Noted Strength Comments Strength Comments LE motion limited secondary to pain, but able to lift limbs against gravity and perform functional mobility M7 PT-IP Assessment and Plan Start: 05/14/22 10:50 Freq: NEEDED Status: Active Protocol: Document 05/15/22 16:54 TS (Rec: 05/15/22 17:05 TS [id number]) PT Summary Assessment and Plan Potential Rehabilitation Potential Good Status of Condition at Evaluation Evolving Summary Impairments Pain,ROM,Strength,Balance,Bed Mobility,Transfers,Gait, Activity Tolerance Assessment Summary Pt had increasing pain and fatigue this session. She was Trent for logroll to the right and continues to require MaxA for supine to sit. Pt sat EOB ~5 mins, could not progress into standing due to pain and fatigue this session. Pt continues to recall 3/3 of spinal precautions. PT is recommending SNF at this time to increase activity tolerance , progress transfers with AD and gait. Goals Bed Mobility Goal Contact Guard Assistance Transfer Goal Contact Guard Assistance Gait Goal Standby Assistance Gait Distance 100' Other Goals Ascend/descend 3 steps CGA /c bilateral railing Frequency of Treatment Frequency Of Treatment Twice a Day Treatment Plan Physical Therapy Treatment Plan Bed Mobility Training,Transfer Training,Gait Training, Therapeutic Exercise,Discharge Planning Other Recommendations and Next Treatment Trial stairs, progress Focus ambulation. Precautions Lumbar Precautions Log Roll,No Twisting,Limit Bending,Lifting Restriction of 10 lbs,Gait Belt above Incisional Area Weight Bearing Status Weight Bearing Status Weight Bear as Tolerated Recommendations To Nursing Amount of Assist Needed 1 Person Assist Discharge Recommendations PT Discharge Recommendations SNF Rehab
[2022-05-15] MEDS: SENNOSIDES 8.6 MG TABLET 17.2 MG PO (21:28)
[2022-05-15] MEDS: TRAZODONE 50 MG TABLET 100 MG PO (21:33)
[2022-05-16] VITALS: BP 109/55; PULSE 79; RESP 22; TEMP 36.9; O2SAT 96
[2022-05-16] MEDS: OXYCODONE IR 10 MG TABLET PO (02:42)
[2022-05-16 06:51] LABS: Hematocrit 23.1 % (36-46); Hemoglobin 7.9 g/dL (12.0-16.0)
[2022-05-16] MEDS: LEVOTHYROXINE 75 MCG TABLET PO (07:32)
[2022-05-16 08:00] VITALS: BP 123/61; PULSE 105; RESP 17; TEMP 36.5; O2SAT 94
[2022-05-16 08:33] VITALS: PULSE 117; RESP 18; O2SAT 93
--- NOTE | 2022-05-16 08:44 | PM.DS.1 ---
History of Present Illness History of Present Illness Date Patient Seen: 05/16/22 Time Patient Seen: 08:44 Chief complaint: INPT Narrative: 76 yo F with lumbar stenosi, spondylosis/spondylolithesis now s/p post L3-4, L4-5 TLIF. chronic pain/narcotics, hx gout, HTN . failed conservative treatment and was indicated for surgery. underwent surgery with Dr. Feldman 05/13/22 and was admitted postop. Discharge Providers Provider Date of admission: 05/13/22 10:20 Discharge Date: 05/16/22 Consults: 05/13/22 16:48 Consult to Occupational Therapy Evaluate & Treat Comment: Physician Instructions: Evaluate and treat Consult to Physical Therapy Evaluate & Treat Comment: Physician Instructions: Evaluate and Treat Discharge provider: Tami Valadez MD Summary Hospital Course Discharge Diagnosis: spondylosis/ spondylolithesis lumbar Hospital Course: admitted postop and have initial difficulty with pain control (pt on narcotic chronically) pain medication adjustments may and improved. postop blood loss anemia trended and stabliized, does not meet transfusion criteria. worked with PT/OT and requires SNF discharge. tailored bowel regimen, improving, passing gas. tolerated oral meds and diet Status at Discharge Cognitive/behavioral status at discharge: oriented Functional status at discharge: uses cane/walker Overall status at discharge: patient is not back to baseline Time Spent with Patient Time spent: Less than 30 minutes Exam Vital Signs (past 8 hours): Fraction of Inspired Oxygen 28 SaO2/FiO2 Ratio 350 Oxygen Delivery Method Nasal Cannula Oxygen Flow Rate 2 Objective Labs 05/16/22 06:11 Labs: Laboratory Results - last 24 hr 05/16/22 06:11 Hgb 7.9 L Hct 23.1 L PFSH Medical History Bilateral cataracts Bowel obstruction COPD (chronic obstructive pulmonary disease) Deviated nasal septum GERD (gastroesophageal reflux disease) Gout History of CHITIMACHA (hard of hearing) HTN (hypertension) Hypothyroidism Sciatica Spinal stenosis Surgical History History of hysterectomy History of surgery Hx of abdominal surgery Hx of appendectomy Hx of cholecystectomy Hx of dilation and curettage Social History household members: spouse Smoking Status: Current every day smoker alcohol intake: current Discharge Assessment & Plan Assessment and Plan Assessment: Postoperative status: better pain control today, abd pain improved passing gas Postoperative status narrative: -stable pod 3 status post L3-4, L4-5 TLIF -postoperative hemorrhagic anemia, hemoglobin currently is 7.9-- stable vss stable -chronic pain management patient? -constipation with history of abdominal surgery x7 Postoperative plan narrative: -mobilize with PT/OT or nursing staff.? Weightbearing as tolerated with front wheel walker.? No bending, lifting, twisting x6 weeks? -continue multimodal pain management.? Add tramadol for breakthrough pain? -resume normal bowel program.? Encouraged patient to get out of bed and walk.?remove prather, -DC to SNF, transport possible 11am today. Discharge Plan Discharge Plan Patient Disposition: SNF Transfer to: [facility], [facility] Discharge orders & Medications Prescriptions: New acetaminophen 325 mg Tablet 650 mg PO Q6H PRN (Reason: Fever/Mild Pain (1-3)) Qty: 60 0RF bisacodyl 10 mg Suppository 10 mg MI PRN PRN (Reason: Constipation) Qty: 5 0RF docusate sodium 100 mg Capsule 100 mg PO BID Qty: 60 1RF hydroxyzine pamoate 25 mg Capsule 25 mg PO Q4HR PRN (Reason: Nausea And Vomiting) Qty: 40 0RF oxycodone 10 mg Tablet 10 mg PO Q4HR PRN (Reason: pain) Qty: 60 0RF oxycodone [OxyContin] 10 mg Tablet,Oral Only,Ext.Rel.12 Hr 20 mg PO BID Qty: 60 0RF sennosides [senna] 8.6 mg Tablet 17.2 mg PO BEDTIME Qty: 60 0RF polyethylene glycol 3350 17 gram Powder In Packet 17 gm PO DAILY Qty: 10 1RF tramadol 50 mg Tablet 50 mg PO Q4H PRN (Reason: Pain, Moderate (4-6)) Qty: 30 0RF Continued cyclobenzaprine 10 mg Tablet 10 mg PO TID PRN (Reason: Muscle Spasm) lisinopril-hydrochlorothiazide 20-12.5 mg Tablet 2 tab PO DAILY amlodipine 5 mg Tablet 5 mg PO DAILY allopurinol 100 mg Tablet 200 mg PO DAILY minoxidil 2.5 mg Tablet 2.5 mg PO DAILY levothyroxine 75 mcg Tablet 75 mcg PO DAILY estradiol 1 mg Tablet 1 mg PO DAILY Rx Instructions: off 1 week; repeat cycle dicyclomine 20 mg Tablet 40 mg PO DAILY PRN (Reason: abdominal issues) megestrol 400 mg/10 mL (10 mL) Suspension 400 mg PO DAILY PRN (Reason: Weight Gain) prednisone 20 mg Tablet 40 mg PO DAILY PRN (Reason: Taper if needed for COPD) trazodone 100 mg Tablet 100 - 150 mg PO BEDTIME PRN (Reason: Sleep) albuterol sulfate [Ventolin HFA] 90 mcg/actuation Hfa Aerosol Inhaler 2 puff INHALATION BID esomeprazole magnesium 20 mg Capsule,Delayed Release(Dr/Ec) PO DAILY magnesium L-lactate 84 mg Tablet Extended Release 168 mg PO DAILY Discontinued meloxicam 15 mg Tablet 15 mg PO DAILY oxycodone 5 mg Tablet 10 mg PO BID PRN (Reason: Pain) docusate sodium [Colace] 100 mg Capsule 300 mg PO DAILY Follow up/Referrals: Carlos Feldman MD [Physician] - As previously scheduled (Follow up w/ Laura Garcia PA-C, on 05/28/2022 @ 1:40 pm at [facility] in [place].) Diet/Activity/Treatments Diet: Diet as Tolerated Activity: No deep bending or twisting at the waist. No lifting more than 10 pounds. Skin/Wound/Dressing Care Report to your healthcare provider any signs of infection, such as:: chills, fever, night sweats, unusual drainage and unusual redness Dressing: May shower; keep dressing as dry as possible. If dressing becomes wet or dirty inside, remove and replace with clean, dry gauze. No bathing or otherwise soaking incisions. Do not apply any creams, lotions, or ointments to incisions. Special Rehabilitation Services Reason for rehabilitation: Post-operative therapy Visit Report/Discharge Packet Instructions: DI for Prescription Opioid Use, DI for Transforaminal Lumbar Interbody Fusion Stand Alone Forms: Patient Portal/API, Surgery Discharge Quality VTE Deep Vein Thrombosis/Pulmonary Embolism Present on Admission: No
[2022-05-16 08:47] VITALS: O2SAT 87; O2SAT 93
[2022-05-16 09:24] VITALS: PULSE 101; RESP 16; O2SAT 93
[2022-05-16] MEDS: ALBUTEROL 2.5 MG/3 ML NEB (ADULT) INH (09:24)
[2022-05-16] MEDS: estradioL 1 MG TABLET PO (09:43)
[2022-05-16] MEDS: DOCUSATE 100 MG CAPSULE PO (09:43)
[2022-05-16] MEDS: allopurinoL 100 MG TABLET 200 MG PO (09:44)
[2022-05-16] MEDS: hydroCHLOROthiazide 25 MG TABLET PO (09:45)
[2022-05-16] MEDS: OXYCODONE ER 10 MG TAB 20 MG PO (09:45)
[2022-05-16] MEDS: TRAMADOL 50 MG TABLET PO (09:46)
[2022-05-16 11:03] LABS: COVID19 -Nasal RAPID Negative (Negative)
--- NOTE | 2022-05-16 11:03 | PC.NURSE ---
Addendum entered by Mai Olivas R.N. 05/16/22 11:21: Patient just d/cd to [facility] and report called. Original Note: Assess- Patient medicated with her long acting oxycontin and 50mg of po tramadol. Dressing to low back is cdi, Patient will be going to [facility] soon. She will be picked up by a transportation company soon. Covid swab done. Patients things packed up and she is waiting for her ride.
== END 2022-05-16 11:25 | disposition home or self-care (01) | DRG 454 ==
PROVIDERS: Physician Assistant; Admitting Provider Orthopaedic Surgery Orthopaedic Surgery of the Spine; Referring Provider Orthopaedic Surgery Orthopaedic Surgery of the Spine; Visit Provider Orthopaedic Surgery Orthopaedic Surgery of the Spine
PROC: 0SG10AJ Fusion of 2 or more Lumbar Vertebral Joints with Interbody Fusion Device, Posterior Approach, Anterior Column, Open Approach (ICD-10-PCS; principal; 2022-05-13 12:15)
DX: M43.16 Spondylolisthesis, lumbar region (principal); D62 Acute posthemorrhagic anemia; M48.062 Spinal stenosis, lumbar region with neurogenic claudication; M54.16 Radiculopathy, lumbar region; K59.00 Constipation, unspecified; G89.18 Other acute postprocedural pain; I10 Essential (primary) hypertension; M10.9 Gout, unspecified; E03.9 Hypothyroidism, unspecified; K21.9 Gastro-esophageal reflux disease without esophagitis; F17.290 Nicotine dependence, other tobacco product, uncomplicated; Z20.822 Contact with and (suspected) exposure to COVID-19
CPT/HCPCS: 36415; 72100; 76000; 85014; 85018; 87635; 94640; 94760; 97116; 97162; 97166; 97530; C9803; C1713; C9290; J0171; J0330; J1100; J1170; J2060; J2250; J2405; J2704; J3010; J3410; J7613